=== PATIENT | male | born 1965 | race Caucasian/White ===

== ENCOUNTER 2017-01-31 19:47 | Emergency (ER) | payer SELFPAY ==
[~2017-01-31] VITALS: Ht 165.1 cm; Wt 78.0 kg
[2017-01-31 19:56] VITALS: BP 140/98
[2017-01-31] MEDS ORDERED: LISI-660 PO (20:04)
[2017-01-31] MEDS ORDERED: AMLO-511 PO (20:04)
== END 2017-01-31 20:40 | disposition left against medical advice (07) ==
LOC: EMS 19:50
DX: F41.9 Anxiety disorder, unspecified (principal); I10 Essential (primary) hypertension; Z53.21 Procedure and treatment not carried out due to patient leaving prior to being seen by health care provider